=== PATIENT | male | born 1995 | race Caucasian/White ===

== ENCOUNTER 2017-01-01 12:47 | Emergency (ER) | payer OTHER ==
[~2017-01-01] VITALS: Ht 187.9 cm; Wt 65.8 kg
[2017-01-01 12:47] VITALS: BP 138/70
[~2017-01-01 12:47] MED LIST: ACETAMINOPHEN-H1 TA2 PO; CYCLOBENZAPRINE10 MG PO; CYCLOBENZAPRINE5 M3 PO; HYDROCODONE BIT1 T11 PO; IBU800 MG PO; MOTRIN800 MG PO; Motrin,Rufen800 MG PO; NKHM; NORCO 325 MG-51 TAB PO; PREDNISONE10 MG PO; TYLENOL W/CODEI1 TA2 PO; VICODIN 5-3001 EACH PO; ZOFRAN ODT4 MG SL
[2017-01-01] MEDS ORDERED: LEVOFLOXACIN500 MG PO (15:28)
== END 2017-01-01 15:22 | disposition home or self-care (01) ==
LOC: ED 12:47
DX: S06.0X9A Concussion with loss of consciousness of unspecified duration, initial encounter (principal); S50.01XA Contusion of right elbow, initial encounter; S00.81XA Abrasion of other part of head, initial encounter; J32.9 Chronic sinusitis, unspecified; J45.909 Unspecified asthma, uncomplicated; F17.200 Nicotine dependence, unspecified, uncomplicated; Z90.49 Acquired absence of other specified parts of digestive tract; V49.88XA Car occupant (driver) (passenger) injured in other specified transport accidents, initial encounter; Y93.89 Activity, other specified; Y92.413 State road as the place of occurrence of the external cause; Y99.9 Unspecified external cause status

== ENCOUNTER 2017-03-08 10:29 | Emergency (ER) | payer OTHER ==
[~2017-03-08] VITALS: Ht 182.8 cm; Wt 61.2 kg
[~2017-03-08 10:29] MED LIST changes: +LEVOFLOXACIN500 MG PO
[2017-03-08 10:44] VITALS: BP 130/74
== END 2017-03-08 12:42 | disposition home or self-care (01) ==
LOC: ED 10:29
DX: S83.92XA Sprain of unspecified site of left knee, initial encounter (principal); M25.462 Effusion, left knee; F17.200 Nicotine dependence, unspecified, uncomplicated; Z90.49 Acquired absence of other specified parts of digestive tract; W21.03XA Struck by baseball, initial encounter; Y93.64 Activity, baseball; Y92.320 Baseball field as the place of occurrence of the external cause; Y99.9 Unspecified external cause status

== ENCOUNTER 2017-11-15 16:42 | Emergency (ER) | payer OTHER ==
[2017-11-15 16:56] VITALS: BP 115/60
== END 2017-11-15 17:23 | disposition home or self-care (01) ==
LOC: ED 16:42
DX: T15.01XA Foreign body in cornea, right eye, initial encounter (principal); F12.10 Cannabis abuse, uncomplicated; F17.200 Nicotine dependence, unspecified, uncomplicated; Z90.49 Acquired absence of other specified parts of digestive tract; X58.XXXA Exposure to other specified factors, initial encounter; Y93.9 Activity, unspecified; Y92.89 Other specified places as the place of occurrence of the external cause; Y99.9 Unspecified external cause status

== ENCOUNTER 2018-05-18 10:28 | Emergency (ER) | payer OTHER ==
[~2018-05-18] VITALS: Ht 182.8 cm; Wt 70.3 kg
[2018-05-18 10:30] VITALS: BP 128/73
[2018-05-18] MEDS ORDERED: AMOXICILLIN875 MG PO (10:38)
[2018-05-18] MEDS ORDERED: Motrin,Rufen800 MG PO (10:38)
== END 2018-05-18 10:42 | disposition home or self-care (01) ==
LOC: ED 10:28
DX: K08.89 Other specified disorders of teeth and supporting structures (principal); J45.909 Unspecified asthma, uncomplicated; F17.200 Nicotine dependence, unspecified, uncomplicated

== ENCOUNTER 2019-12-30 10:56 | Emergency (ER) | payer OTHER ==
[~2019-12-30] VITALS: Ht 182.8 cm; Wt 70.3 kg
[~2019-12-30 10:56] MED LIST changes: +AMOXICILLIN875 MG PO
[2019-12-30 11:18] VITALS: BP 124/95
[2019-12-30] MEDS ORDERED: AMOXICILLIN500 M2 PO (12:03)
[2019-12-30] MEDS ORDERED: Motrin,Rufen800 MG PO (12:03)
== END 2019-12-30 11:22 | disposition home or self-care (01) ==
LOC: ED 10:56
DX: K04.7 Periapical abscess without sinus (principal); J45.909 Unspecified asthma, uncomplicated; Z79.2 Long term (current) use of antibiotics; Z79.899 Other long term (current) drug therapy; Z90.49 Acquired absence of other specified parts of digestive tract; Z87.891 Personal history of nicotine dependence

== ENCOUNTER 2021-03-14 00:53 | Emergency (ER) | payer SELFPAY ==
[~2021-03-14] VITALS: Ht 182.8 cm; Wt 70.3 kg
[~2021-03-14 00:53] MED LIST changes: +AMOXICILLIN500 M2 PO
[2021-03-14 00:58] VITALS: BP 120/93
[2021-03-14 01:21] LABS: BASO # 0.1 10*3/uL (0.0-0.1); BASO % 0.6 % (0.0-1.0); EOS # 0.1 10*3/uL (0.0-0.4); EOS % 0.6 % (1.0-4.0); HEMATOCRIT 49.9 % (42.0-52.0); LYMPH # 2.6 10*3/uL (1.3-4.4); LYMPH % 33.2 % (27.0-41.0); MEAN CELL VOLUME 91.9 fl (80.0-94.0); MEAN CORPUSCULAR HGB 31.5 pg (27.0-31.0); MEAN CORPUSCULAR HGB CONC 34.3 g/dl (33.0-37.0); MONO # 0.4 10*3/uL (0.1-1.0); MONO % 5.4 % (3.0-9.0); NEUT # 4.8 10*3/uL (2.3-7.9); NEUT % 59.9 % (47.0-73.0); PLATELET COUNT AUTOMATED 200 10*3/uL (130-400); RED BLOOD COUNT 5.43 10*6/uL (4.50-5.90); RED CELL DISTRI WIDTH 13.2 % (0-14.5); WHITE BLOOD COUNT 7.9 10*3/uL (4.8-10.8)
[2021-03-14 01:36] LABS: ACETAMINOPHEN (TYLENOL) < 5.0 ug/ml (10-30); ALBUMIN 4.6 gm/dl (3.1-4.5); ALKALINE PHOSPHATASE 91 U/L (45-117); BUN 6 mg/dl (7-24); CHLORIDE 111 mmol/L (98-107); CREATININE 1.07 mg/dL (0.70-1.30); POTASSIUM 4.6 mmol/L (3.5-5.1); SGOT/AST 35 IU/L (3-35); SGPT/ALT 45 U/L (12-78); SODIUM 144 mmol/L (136-145); TOTAL PROTEIN 7.7 gm/dL (6.4-8.2)
[2021-03-14 02:11] LABS: BILIRUBIN Negative (Negative); BLOOD Negative (Negative); CLARITY Clear (Clear); COLOR Yellow (Yellow); GLUCOSE Negative (Negative); KETONE Negative (Negative); LEUKO ESTERASE Negative (Negative); NITRITE Negative (Negative); PH 6.5 (4.5-8.0); SPECIFIC GRAVITY <= 1.005 (1.001-1.030); UROBILINOGEN 0.2 E.U./dl (0.0-1.0)
[2021-03-14 02:12] LABS: URINE AMPHETAMINES < 1000 (1000ng/ml); URINE BARBITURATES < 200 (200ng/ml); URINE BENZODIAZEPINES < 200 (200ng/ml); URINE CANNABINOIDS (THC) < 50 (50ng/ml); URINE COCAINE < 300 (300ng/ml); URINE METHADONE < 300 (300ng/ml); URINE OPIATES < 300 (300ng/ml)
[2021-03-14 02:33] LABS: URINE PHENCYCLIDINE < 25 (25ng/ml)
[2021-03-14 02:35] LABS: WBC 0-2 wbc/hpf (0-5)
== END 2021-03-14 13:44 | disposition home or self-care (01) ==
LOC: ED 00:53
PROVIDERS: Emergency Medicine
DX: F43.21 Adjustment disorder with depressed mood (principal); F10.920 Alcohol use, unspecified with intoxication, uncomplicated; J45.909 Unspecified asthma, uncomplicated; F17.200 Nicotine dependence, unspecified, uncomplicated; Z79.2 Long term (current) use of antibiotics; Z79.899 Other long term (current) drug therapy; Z90.49 Acquired absence of other specified parts of digestive tract; Y90.8 Blood alcohol level of 240 mg/100 ml or more

== ENCOUNTER 2022-05-04 07:08 | Emergency (ER) | payer BC ==
[~2022-05-04] VITALS: Wt 72.6 kg
[2022-05-04 07:25] VITALS: BP 104/88
[2022-05-04] MEDS ORDERED: ZITHROMAX250 MG PO (08:41)
[2022-05-04] MEDS ORDERED: PREDNISONE50 MG PO (08:41)
== END 2022-05-04 09:25 | disposition home or self-care (01) ==
LOC: ED 07:08
DX: R09.1 Pleurisy (principal); F17.200 Nicotine dependence, unspecified, uncomplicated; F12.10 Cannabis abuse, uncomplicated; Z90.49 Acquired absence of other specified parts of digestive tract

== ENCOUNTER 2023-11-05 12:37 | Emergency (ER) | payer BC ==
[~2023-11-05] VITALS: Ht 182.8 cm; Wt 74.8 kg
[~2023-11-05 12:37] MED LIST changes: +PREDNISONE50 MG PO; +ZITHROMAX250 MG PO
[2023-11-05 12:43] VITALS: BP 137/87
[2023-11-05] MEDS ORDERED: IBUPROFEN 800 MG TAB PO ONE (13:00)
[2023-11-05] MEDS ORDERED: Motrin,Rufen800 MG PO (14:41)
== END 2023-11-05 14:50 | disposition home or self-care (01) ==
LOC: ED 12:37
DX: S93.402A Sprain of unspecified ligament of left ankle, initial encounter (principal); J45.909 Unspecified asthma, uncomplicated; F12.10 Cannabis abuse, uncomplicated; F17.200 Nicotine dependence, unspecified, uncomplicated; Z90.49 Acquired absence of other specified parts of digestive tract; X50.1XXA Overexertion from prolonged static or awkward postures, initial encounter; Y93.89 Activity, other specified; Y92.89 Other specified places as the place of occurrence of the external cause; Y99.8 Other external cause status

== ENCOUNTER 2025-07-06 10:51 | Inpatient (IN) | payer SELFPAY ==
[~2025-07-06] VITALS: Ht 182.9 cm; Wt 70.3 kg
[2025-07-06 11:03] VITALS: BP 132/85
[2025-07-06] MEDS ORDERED: SODIUM CHLORIDE 0.9% 1,000 ML IV SCH (11:25)
[2025-07-06] MEDS ORDERED: LORazepam 2 MG/ML VIAL IV ONE (11:30)
[2025-07-06] MEDS ORDERED: MAGNESIUM SULFATE 100 ML IV ONE (11:30)
[2025-07-06] MEDS ORDERED: FOLIC ACID 1 MG TAB PO ONE ×2 (11:30→14:15)
[2025-07-06 11:42] LABS: BASO # 0.0 10*3/uL (0.0-0.1); BASO % 0.4 % (0.0-1.0); EOS # 0.1 10*3/uL (0.0-0.4); EOS % 0.7 % (1.0-4.0); MEAN CELL VOLUME 91.3 fl (80.0-94.0); MEAN CORPUSCULAR HGB 30.2 pg (27.0-31.0); MEAN PLATELET VOLUME 9.7 fl (9.6-12.3); MONO # 0.6 10*3/uL (0.1-1.0); MONO % 8.4 % (3.0-9.0); NEUT # 5.0 10*3/uL (2.3-7.9); NEUT % 72.2 % (47.0-73.0); NUCLEATED RED BLOOD CELL 0.0 % (0.0-0.0); NUCLEATED RED BLOOD CELL 0.0 10*3/uL (0.0-0.0); PLATELET COUNT AUTOMATED 142 10*3/uL (130-400); RED CELL DISTRI WIDTH 13.9 % (0-14.5)
[2025-07-06 12:12] LABS: SGPT/ALT 249.0 U/L (5-49)
[2025-07-06 12:13] LABS: BUN 6 mg/dl (9-23); ETHYL ALCOHOL 258.6 mg/dl (<3); SGPT/ALT 247 U/L (5-49)
[2025-07-06 12:19] LABS: BILIRUBIN Negative (Negative); BLOOD Negative (Negative); CLARITY Clear (Clear); COLOR Yellow (Yellow); KETONE Negative (Negative); LEUKO ESTERASE Negative (Negative); NITRITE Negative (Negative); PH 6.5 (4.5-8.0); SPECIFIC GRAVITY <= 1.005 (1.001-1.030); UROBILINOGEN 0.2 E.U./dl (0.0-1.0)
[2025-07-06 12:26] LABS: URINE AMPHETAMINES Negative (1000ng/ml); URINE BARBITURATES Negative (200ng/ml); URINE BENZODIAZEPINES Negative (200ng/ml); URINE CANNABINOIDS (THC) Negative (50ng/ml); URINE COCAINE Negative (300ng/ml); URINE METHADONE Negative (300ng/ml); URINE OPIATES Negative (300ng/ml); URINE PHENCYCLIDINE Negative (25ng/ml)
[2025-07-06 12:28] LABS: EPITHELIAL CELLS 0-2
[2025-07-06 12:29] LABS: RBC 0-2 rbc/hpf (0-2); WBC 0-2 wbc/hpf (0-5)
[2025-07-06] MEDS ORDERED: SODIUM CHLORIDE 0.9% 1,000 ML IV ONE (13:05)
[2025-07-06 14:00] VITALS: BP 119/74
[2025-07-06] MEDS ORDERED: Ondansetron Hydrochloride 4 MG/2 ML VIAL IV PRN (14:00)
[2025-07-06] MEDS ORDERED: ACETAMINOPHEN 650 MG SUPP R PRN (14:00)
[2025-07-06] MEDS ORDERED: BISACODYL 5 MG TAB PO PRN (14:00)
[2025-07-06] MEDS ORDERED: BISACODYL 10 MG SUPP R PRN (14:00)
[2025-07-06] MEDS ORDERED: ACETAMINOPHEN 325 MG TAB PO PRN (14:00)
[2025-07-06 14:09] VITALS: BP 119/74
[2025-07-06] MEDS ORDERED: Dicyclomine Hydrochloride 20 MG TAB PO PRN (14:15)
[2025-07-06] MEDS ORDERED: hydrOXYzine 50 MG CAP PO PRN (14:15)
[2025-07-06] MEDS ORDERED: METHOCARBAMOL 750 MG TAB PO PRN (14:15)
[2025-07-06 14:45] VITALS: BP 119/77
[2025-07-06] MEDS ORDERED: LORazepam 1 MG TAB PO SCH (16:00)
[2025-07-06 20:00] VITALS: BP 134/76
[2025-07-07 04:00] VITALS: BP 92/74
[2025-07-07 05:07] LABS: BUN 9 mg/dl (9-23); FREE T4 1.25 ng/dl (0.89-1.76); LDL CHOLESTEROL 125 mg/dL (9-159); SGPT/ALT 168 U/L (5-49)
[2025-07-07 06:36] LABS: BASO # 0.0 10*3/uL (0.0-0.1); BASO % 0.5 % (0.0-1.0); EOS # 0.1 10*3/uL (0.0-0.4); EOS % 1.3 % (1.0-4.0); MEAN CELL VOLUME 92.4 fl (80.0-94.0); MEAN CORPUSCULAR HGB 30.6 pg (27.0-31.0); MEAN PLATELET VOLUME 10.6 fl (9.6-12.3); MONO # 0.3 10*3/uL (0.1-1.0); MONO % 8.4 % (3.0-9.0); NEUT # 2.1 10*3/uL (2.3-7.9); NEUT % 55.6 % (47.0-73.0); NUCLEATED RED BLOOD CELL 0.0 % (0.0-0.0); NUCLEATED RED BLOOD CELL 0.0 10*3/uL (0.0-0.0); RED CELL DISTRI WIDTH 14.0 % (0-14.5)
[2025-07-07 07:19] LABS: PLATELET COUNT AUTOMATED 96 10*3/uL (130-400)
[2025-07-07 08:00] VITALS: BP 141/76
[2025-07-07 09:12] LABS: VITAMIN D, 25-HYDROXY 21.3 ng/mL (30-100)
[2025-07-07] MEDS ORDERED: MULTIVITAMIN 1 TAB TAB PO SCH ×2 (10:00)
[2025-07-07 12:00] VITALS: BP 127/82
[2025-07-07 16:00] VITALS: BP 126/81
[2025-07-07] MEDS ORDERED: LORazepam 1 MG TAB PO SCH (18:00)
[2025-07-07 20:00] VITALS: BP 135/81
[2025-07-08] VITALS: BP 124/79
[2025-07-08 05:31] LABS: BUN 9 mg/dl (9-23); SGPT/ALT 160 U/L (5-49)
[2025-07-08 06:03] LABS: BASO # 0.0 10*3/uL (0.0-0.1); BASO % 0.4 % (0.0-1.0); EOS # 0.1 10*3/uL (0.0-0.4); EOS % 1.4 % (1.0-4.0); MEAN CELL VOLUME 90.2 fl (80.0-94.0); MEAN CORPUSCULAR HGB 30.4 pg (27.0-31.0); MEAN PLATELET VOLUME 10.4 fl (9.6-12.3); MONO # 0.5 10*3/uL (0.1-1.0); MONO % 8.9 % (3.0-9.0); NEUT # 3.0 10*3/uL (2.3-7.9); NEUT % 58.4 % (47.0-73.0); NUCLEATED RED BLOOD CELL 0.0 % (0.0-0.0); NUCLEATED RED BLOOD CELL 0.0 10*3/uL (0.0-0.0); PLATELET COUNT AUTOMATED 95 10*3/uL (130-400); RED CELL DISTRI WIDTH 13.6 % (0-14.5)
[2025-07-08 08:00] VITALS: BP 130/81
[2025-07-08 12:00] VITALS: BP 127/78
[2025-07-08 16:00] VITALS: BP 126/74
[2025-07-08 20:00] VITALS: BP 120/77
[2025-07-08] MEDS ORDERED: LORazepam 1 MG TAB PO PRN (20:00)
[2025-07-09] VITALS: BP 108/82
[2025-07-09] MEDS ORDERED: HYDROXYZINE PAM50 MG PO (07:03)
[2025-07-09] MEDS ORDERED: TAB-A-VITE TA400 MCG PO (07:03)
[2025-07-09 08:00] VITALS: BP 112/67
== END 2025-07-09 10:13 | disposition home or self-care (01) | DRG 897 ==
LOC: ED 10:51 → EDHOLD 13:16 → ICCU 13:16 → 4E 07-08 06:34
PROVIDERS: ADMIT Family Medicine; ATTEND Family Medicine
DX: F10.139 Alcohol abuse with withdrawal, unspecified (principal); E87.20 Acidosis, unspecified; E44.0 Moderate protein-calorie malnutrition; K92.2 Gastrointestinal hemorrhage, unspecified; Z68.1 Body mass index [BMI] 19.9 or less, adult; J45.909 Unspecified asthma, uncomplicated; R74.8 Abnormal levels of other serum enzymes; F41.9 Anxiety disorder, unspecified; E87.8 Other disorders of electrolyte and fluid balance, not elsewhere classified; F10.129 Alcohol abuse with intoxication, unspecified; F32.A Depression, unspecified; F12.90 Cannabis use, unspecified, uncomplicated; F17.210 Nicotine dependence, cigarettes, uncomplicated; Y90.8 Blood alcohol level of 240 mg/100 ml or more; Z90.89 Acquired absence of other organs; Z83.3 Family history of diabetes mellitus